=== PATIENT | male | born 1980 | race Caucasian/White ===

== ENCOUNTER 2016-08-19 06:45 | Emergency (ER) | payer OTHER ==
--- NOTE | 2016-08-19 07:40 | ED ORDER SUMMARY ---
..... Patient: JUANY PIZANO OrderSheet Formerly [facility] VisitID: [id number] [place] [address] 35y, M Registration Date/Time: 08/19/2016 ORDER SHEET Weight: 77.1 kg (stated) Allergies: Iodine GENERAL ORDERS: PCT (Procalcitonin) Urgent (07:08/19/2016 Sofía Pierre) (Cancelled: Physician Order7:31 Sofía Pierre) MEDICATION ORDERS: Prednisone PO 40 mg (NOW) (07:31 08/19/2016 Sofía Pierre) (Ack 7:34 RMarsjordan R.N.) (7:39 RMmagdy R.N.) Albuterol Neb Tx 2 unit doses (NOW) (07:39 08/19/2016 Sofía Pierre) (7:41 RMmagdy R.N.) IV FLUIDS: ORDER SHEET NOTES: [Electronically signed by Marcos Thompson Dr. (07:43 08/19/2016)] [Electronically signed by Connie Love R.N. (07:49 08/19/2016)] [Electronically locked/signed by Connie Love R.N. (07:49 08/19/2016)]
--- NOTE | 2016-08-19 07:40 | ED CLINICAL REPORT ---
Clinical Report - Physicians/Mid Levels Merged With [facility] [address] [place] [address] 08/19/2016 6:47 Patient: JUANY PIZANO Time Seen: 06:50; initial patient contact. Arrived- By private vehicle. Historian- patient. HISTORY OF PRESENT ILLNESS Chief Complaint: WHEEZING and HISTORY OF ASTHMA. This started just prior to arrival and is still present. The dyspnea is described as moderate. The patient has had a cough. No sputum production, orthopnea or chest pain or discomfort. Asthma triggers: unknown. Takes asthma medications (inhaled albuterol) (Inhaler is empty). Similar symptoms previously: Many times. Recent medical care: Not recently seen/assessed. REVIEW OF SYSTEMS No nasal discharge, sinus drainage, fever or chills. All systems otherwise negative, except as recorded above. PAST HISTORY Abscess. Abdominal Muscle Strain. Contusion. Abdominal Pain. Abrasion(s). Heart Disease. Nerve Root Compression. Tetanus Status. Chest Wall Pain. URI. Hypertension. Asthma. ADDITIONAL SURGERIES: Fracture Repair. Right arm, compound fracture. Medications: Albuterol, PRN. Allergies: Iodine.(Anaphylaxis). SOCIAL HISTORY Former smoker. No alcohol use or drug use. ADDITIONAL NOTES The nursing notes have been reviewed with agreement regarding the chief complaint, PMH and patient medications and allergies. PHYSICAL EXAM Vital Signs: 08/19/2016 06:48 BP: 151/81. HR: 80. RR: 22. O2 saturation: 98%. Temp: 98 F. Have been reviewed. Hypertensive. Heart rate normal. Tachypneic. Temperature normal. Oxygen saturation normal. Appearance: Alert. No acute distress. Eyes: Eyes normal inspection. ENT: Pharynx normal. Neck: No JVD. CVS: Normal heart rate and rhythm. Heart sounds normal. Respiratory: Mild respiratory distress with accessory muscle use and tachypnea. Skin: No rash. Neuro: Oriented X 3. PROGRESS AND PROCEDURES Course of Care: Albuterol nebulizer treatment #2 (2.5 mg in 3 mL NS) given. The patient's symptoms are now gone. Physical exam findings are improved. Disposition: Discharged home in good and improved condition. CLINICAL IMPRESSION Moderate persistent asthma with an acute exacerbation. No status asthmaticus or pneumonia. INSTRUCTIONS Your Current Medications: CONTINUE TAKING THE FOLLOWING MEDICATIONS: Albuterol* : PRN. Prescription Medications: Albuterol HFA oral inhaler: inhale 2 puffs every 4 hours as needed for wheezing, difficulty breathing or shortness of breath. Dispense one (1) unit. No refill. Prednisone 20 mg: take 2 orally every day for 4 days. Dispense sufficient quantity. No refills. (Start on 08/20/16) Follow-up: Follow up with your doctor Wednesday as scheduled. Screening today revealed the patient's blood pressure to be in the pre-hypertensive range. The patient should follow up with a primary care provider for blood pressure management. (Electronically signed by Marcos Thompson Dr. 08/19/2016 7:43)
--- NOTE | 2016-08-19 07:40 | ED ORDER SUMMARY ---
..... Patient: JUANY PIZANO OrderSheet [facility] VisitID: [id number] [place] [address] 35y, M Registration Date/Time: 08/19/2016 ORDER SHEET Weight: 77.1 kg (stated) Allergies: Iodine GENERAL ORDERS: PCT (Procalcitonin) Urgent (07:08/19/2016 Sofía Pierre) (Cancelled: Physician Order7:31 Sofía Pierre) MEDICATION ORDERS: Prednisone PO 40 mg (NOW) (07:31 08/19/2016 Sofía Pierre) (Ack 7:34 RMarsjordan R.N.) (7:39 RMmagdy R.N.) Albuterol Neb Tx 2 unit doses (NOW) (07:39 08/19/2016 Sofía Pierre) (7:41 RMmagdy R.N.) IV FLUIDS: ORDER SHEET NOTES: [Electronically signed by Marcos Thompson Dr. (07:43 08/19/2016)] [Electronically signed by Connie Love R.N. (07:49 08/19/2016)] [Electronically locked/signed by Connie Love R.N. (07:49 08/19/2016)]
--- NOTE | 2016-08-19 07:40 | ED NURSING NOTES ---
Clinical Report - Nurses [facility] [address] [place] [address] 08/19/2016 6:47 Patient: JUANY PIZANO TRIAGE Triage time 06:48 Aug 19 2016. Acuity: LEVEL 3. Chief Complaint: "ASTHMA ATTACK". ( albuterol treatment in progress). --06:51 Andre Lake R.N. 06:48 08/19/16. BP: 151/81. HR: 80. RR: 22. O2 saturation: 98%. Temp: 98 F. Pain level now 0/10. --06:51 Andre Lake R.N. Weight: 77.1 kg stated. Height/Length: 68 inches Estimated. BMI: 25.9. --06:51 Andre Lake R.N. Medications Albuterol, PRN. --06:49 Andre Lake R.N. Allergies Iodine.(Anaphylaxis) --06:49 Andre Lake R.N. History Arrived by private vehicle. ( Report of acute asthma exaceterbation, labored breathing during triage minimal wheezing heard lungs more diminished). This started just prior to arrival. SOCIAL HX: Former smoker. No alcohol use or drug use. --06:51 Andre Lake R.N. PROBLEMS: Abscess. Abdominal Muscle Strain. Contusion. Abdominal Pain. Abrasion(s). Heart Disease. Nerve Root Compression. Tetanus Status. Chest Wall Pain. Immunizations. URI. Hypertension. Asthma. --06:49 Andre Lake R.N. ADDITIONAL SURGERIES: Fracture Repair. Right arm, compound fracture. --06:49 Andre Lake R.N. Interventions ID band on patient. To treatment room. --06:51 Andre Lake R.N. PHYSICAL ASSESSMENT GENERAL / NEURO / PSYCH: Alert. Oriented X 4. Appears anxious. RESPIRATORY: Mild respiratory distress. The patient can speak a few words at a time. Accessory muscle use. Decreased breath sounds diffusely over both lungs. No wheezes. CVS: Capillary refill less than 2 seconds. --06:53 Andre Lake R.N. NURSING PROGRESS NOTES monitor technician placed on patient. Call light placed in reach of patient. Side rails up x 1. Bed placed in lowest position. Patient placed in chair. --06:56 Andre Lake R.N. ( Report given to uri Rosales). --07:09 Andre Lake R.N. 07:08 08/19/16. HR: 78. O2 saturation: 95%. --07:09 Andre Lake R.N. 07:15 08/19/16. Care transferred and report received (report received from RN. Andre). --07:15 Connie Love R.N. 07:21 08/19/16. BP: 122/85. HR: 87. RR: 16. O2 saturation: 97%. Temp: deferred. Pain level now: 0/10. --07:22 Connie Love R.N. 07:16 08/19/2016 Albuterol Neb TX Nebulizer 2 unit dose given. Given by the respiratory therapist. Allergies verified and confirmed 5 rights. --07:41 Connie Love R.N. 07:22 08/19/16. Patient informed about reason for wait and about plan of care. --07:22 Connie Love R.N. 07:39 08/19/2016 Prednisone PO Tablets 40 mg given. Allergies verified and confirmed 5 rights. --07:39 Connie Love R.N. DISPOSITION / DISCHARGE 07:47 08/19/16. Departure time: 07:47. No learning barriers present. Discharge instructions provided and reviewed with the patient. Reviewed warnings. Reviewed medication(s). Treatments reviewed. Patient verbalized understanding. Written instructions provided in [place]i. The patient was discharged by the physician. He was discharged home. He left the Emergency Department ambulatory and via private vehicle. Patient driving. --07:47 Connie Love R.N. 07:21 08/19/16. BP: 122/85. HR: 87. RR: 16. O2 saturation: 97%. Temp: deferred. Pain level now: 0/10. --07:47 Connie Love R.N. Locked/Released at 08/19/2016 7:49 by Connie Love R.N.
--- NOTE | 2016-08-19 07:40 | ED NURSING NOTES ---
Clinical Report - Nurses [facility] [address] [place] [address] 08/19/2016 6:47 Patient: JUANY PIZANO TRIAGE Triage time 06:48 Aug 19 2016. Acuity: LEVEL 3. Chief Complaint: "ASTHMA ATTACK". ( albuterol treatment in progress). --06:51 Andre Lake R.N. 06:48 08/19/16. BP: 151/81. HR: 80. RR: 22. O2 saturation: 98%. Temp: 98 F. Pain level now 0/10. --06:51 Andre Lake R.N. Weight: 77.1 kg stated. Height/Length: 68 inches Estimated. BMI: 25.9. --06:51 Andre Lake R.N. Medications Albuterol, PRN. --06:49 Andre Lake R.N. Allergies Iodine.(Anaphylaxis) --06:49 Andre Lake R.N. History Arrived by private vehicle. ( Report of acute asthma exaceterbation, labored breathing during triage minimal wheezing heard lungs more diminished). This started just prior to arrival. SOCIAL HX: Former smoker. No alcohol use or drug use. --06:51 Andre Lake R.N. PROBLEMS: Abscess. Abdominal Muscle Strain. Contusion. Abdominal Pain. Abrasion(s). Heart Disease. Nerve Root Compression. Tetanus Status. Chest Wall Pain. Immunizations. URI. Hypertension. Asthma. --06:49 Andre Lake R.N. ADDITIONAL SURGERIES: Fracture Repair. Right arm, compound fracture. --06:49 Andre Lake R.N. Interventions ID band on patient. To treatment room. --06:51 Andre Lake R.N. PHYSICAL ASSESSMENT GENERAL / NEURO / PSYCH: Alert. Oriented X 4. Appears anxious. RESPIRATORY: Mild respiratory distress. The patient can speak a few words at a time. Accessory muscle use. Decreased breath sounds diffusely over both lungs. No wheezes. CVS: Capillary refill less than 2 seconds. --06:53 Andre Lake R.N. NURSING PROGRESS NOTES lunchroom monitor placed on patient. Call light placed in reach of patient. Side rails up x 1. Bed placed in lowest position. Patient placed in chair. --06:56 Andre Lake R.N. ( Report given to uri Rosales). --07:09 Andre Lake R.N. 07:08 08/19/16. HR: 78. O2 saturation: 95%. --07:09 Andre Lake R.N. 07:15 08/19/16. Care transferred and report received (report received from RN. Andre). --07:15 Connie Love R.N. 07:21 08/19/16. BP: 122/85. HR: 87. RR: 16. O2 saturation: 97%. Temp: deferred. Pain level now: 0/10. --07:22 Connie Love R.N. 07:16 08/19/2016 Albuterol Neb TX Nebulizer 2 unit dose given. Given by the respiratory therapist. Allergies verified and confirmed 5 rights. --07:41 Connie Love R.N. 07:22 08/19/16. Patient informed about reason for wait and about plan of care. --07:22 Connie Love R.N. 07:39 08/19/2016 Prednisone PO Tablets 40 mg given. Allergies verified and confirmed 5 rights. --07:39 Connie Love R.N. DISPOSITION / DISCHARGE 07:47 08/19/16. Departure time: 07:47. No learning barriers present. Discharge instructions provided and reviewed with the patient. Reviewed warnings. Reviewed medication(s). Treatments reviewed. Patient verbalized understanding. Written instructions provided in Brazilian. The patient was discharged by the physician. He was discharged home. He left the Emergency Department ambulatory and via private vehicle. Patient driving. --07:47 Connie Love R.N. 07:21 08/19/16. BP: 122/85. HR: 87. RR: 16. O2 saturation: 97%. Temp: deferred. Pain level now: 0/10. --07:47 Connie Love R.N. Locked/Released at 08/19/2016 7:49 by Connie Love R.N.
--- NOTE | 2016-08-19 07:40 | ED CLINICAL REPORT ---
Clinical Report - Physicians/Mid Levels [facility] [address] [place] [address] 08/19/2016 6:47 Patient: JUANY PIZANO Time Seen: 06:50; initial patient contact. Arrived- By private vehicle. Historian- patient. HISTORY OF PRESENT ILLNESS Chief Complaint: WHEEZING and HISTORY OF ASTHMA. This started just prior to arrival and is still present. The dyspnea is described as moderate. The patient has had a cough. No sputum production, orthopnea or chest pain or discomfort. Asthma triggers: unknown. Takes asthma medications (inhaled albuterol) (Inhaler is empty). Similar symptoms previously: Many times. Recent medical care: Not recently seen/assessed. REVIEW OF SYSTEMS No nasal discharge, sinus drainage, fever or chills. All systems otherwise negative, except as recorded above. PAST HISTORY Abscess. Abdominal Muscle Strain. Contusion. Abdominal Pain. Abrasion(s). Heart Disease. Nerve Root Compression. Tetanus Status. Chest Wall Pain. URI. Hypertension. Asthma. ADDITIONAL SURGERIES: Fracture Repair. Right arm, compound fracture. Medications: Albuterol, PRN. Allergies: Iodine.(Anaphylaxis). SOCIAL HISTORY Former smoker. No alcohol use or drug use. ADDITIONAL NOTES The nursing notes have been reviewed with agreement regarding the chief complaint, PMH and patient medications and allergies. PHYSICAL EXAM Vital Signs: 08/19/2016 06:48 BP: 151/81. HR: 80. RR: 22. O2 saturation: 98%. Temp: 98 F. Have been reviewed. Hypertensive. Heart rate normal. Tachypneic. Temperature normal. Oxygen saturation normal. Appearance: Alert. No acute distress. Eyes: Eyes normal inspection. ENT: Pharynx normal. Neck: No JVD. CVS: Normal heart rate and rhythm. Heart sounds normal. Respiratory: Mild respiratory distress with accessory muscle use and tachypnea. Skin: No rash. Neuro: Oriented X 3. PROGRESS AND PROCEDURES Course of Care: Albuterol nebulizer treatment #2 (2.5 mg in 3 mL NS) given. The patient's symptoms are now gone. Physical exam findings are improved. Disposition: Discharged home in good and improved condition. CLINICAL IMPRESSION Moderate persistent asthma with an acute exacerbation. No status asthmaticus or pneumonia. INSTRUCTIONS Your Current Medications: CONTINUE TAKING THE FOLLOWING MEDICATIONS: Albuterol* : PRN. Prescription Medications: Albuterol HFA oral inhaler: inhale 2 puffs every 4 hours as needed for wheezing, difficulty breathing or shortness of breath. Dispense one (1) unit. No refill. Prednisone 20 mg: take 2 orally every day for 4 days. Dispense sufficient quantity. No refills. (Start on 08/20/16) Follow-up: Follow up with your doctor Wednesday as scheduled. Screening today revealed the patient's blood pressure to be in the pre-hypertensive range. The patient should follow up with a primary care provider for blood pressure management. (Electronically signed by Marcos Thompson Dr. 08/19/2016 7:43)
--- NOTE | 2016-08-19 07:49 | ED MAR SUMMARY ---
..... Medication Administration Record [facility] [address] [place] [address] Patient: JUANY PIZANO Visit ID: [id number] 35y, M Weight: 77.1 kg Height/Length: 68 in BMI: 25.9 ALLERGIES: Iodine Given 07:16 08/19/2016 Connie Love RKeke Medication Administered: ALBUTEROL [NEB TX], Dose: 2 unit dose Nebulizer Neb TX. Medication Ordered: Albuterol Neb Tx 2 unit doses (NOW). Given 07:39 08/19/2016 Connie Love RVijayN. Medication Administered: PREDNISONE [PO], Dose: 40 mg Tablets PO. Medication Ordered: Prednisone PO 40 mg (NOW).
--- NOTE | 2016-08-19 07:49 | ED MAR SUMMARY ---
..... Medication Administration Record [facility] [address] [place] [address] Patient: JUANY PIZANO Visit ID: [id number] 35y, M Weight: 77.1 kg Height/Length: 68 in BMI: 25.9 ALLERGIES: Iodine Given 07:16 08/19/2016 Connie Love RKeke Medication Administered: ALBUTEROL [NEB TX], Dose: 2 unit dose Nebulizer Neb TX. Medication Ordered: Albuterol Neb Tx 2 unit doses (NOW). Given 07:39 08/19/2016 Connie Love RVijayN. Medication Administered: PREDNISONE [PO], Dose: 40 mg Tablets PO. Medication Ordered: Prednisone PO 40 mg (NOW).
--- NOTE | 2016-08-19 07:49 | ED DISCHARGE INSTRUCTIONS ---
Patient: JUANY PIZANO General Instructions [facility] VisitID: [id number] [place] [address] 35y, M Registration Date/Time: 08/19/2016 Moderate persistent asthma with an acute exacerbation. No status asthmaticus or pneumonia. INSTRUCTIONS Your Current Medications: CONTINUE TAKING THE FOLLOWING MEDICATIONS: Albuterol* : PRN. Prescription Medications: Albuterol HFA oral inhaler: inhale 2 puffs every 4 hours as needed for wheezing, difficulty breathing or shortness of breath. Dispense one (1) unit. No refill. Prednisone 20 mg: take 2 orally every day for 4 days. Dispense sufficient quantity. No refills. (Start on 08/20/16) Follow-up: Follow up with your doctor Wednesday as scheduled. Screening today revealed the patient's blood pressure to be in the pre-hypertensive range. The patient should follow up with a primary care provider for blood pressure management. ADDITIONAL INFORMATION Albuterol Sulfate Pressurized inhalation, suspension What is this medicine? ALBUTEROL (al BYOO ter ole) is a bronchodilator. It helps open up the airways in your lungs to make it easier to breathe. This medicine is used to treat and to prevent bronchospasm. How should I use this medicine? This medicine is for inhalation through the mouth. Follow the directions on your prescription label. Take your medicine at regular intervals. Do not use more often than directed. Make sure that you are using your inhaler correctly. Ask you doctor or health care provider if you have any questions. Talk to your orthopedic cast specialist regarding the use of this medicine in children. Special care may be needed. What side effects may I notice from receiving this medicine? Side effects that you should report to your doctor or health child care lead teacher as soon as possible: allergic reactions like skin rash, itching or hives, swelling of the face, lips, or tongue breathing problems chest pain feeling faint or lightheaded, falls high blood pressure irregular heartbeat fever muscle cramps or weakness pain, tingling, numbness in the hands or feet vomiting Side effects that usually do not require medical attention (report to your doctor or health child care lead teacher if they continue or are bothersome): cough difficulty sleeping headache nervousness or trembling stomach upset stuffy or runny nose throat irritation unusual taste What may interact with this medicine? anti-infectives like chloroquine and pentamidine caffeine cisapride diuretics medicines for colds medicines for depression or for emotional or psychotic conditions medicines for weight loss including some herbal products methadone some antibiotics like clarithromycin, erythromycin, levofloxacin, and linezolid some heart medicines steroid hormones like dexamethasone, cortisone, hydrocortisone theophylline thyroid hormones What if I miss a dose? If you miss a dose, use it as soon as you can. If it is almost time for your next dose, use only that dose. Do not use double or extra doses. Where should I keep my medicine? Keep out of the reach of children. Store at room temperature between 15 and 30 degrees C (59 and 86 degrees F). The contents are under pressure and may burst when exposed to heat or flame. Do not freeze. This medicine does not work as well if it is too cold. Throw away any unused medicine after the expiration date. Inhalers need to be thrown away after the labeled number of puffs have been used or by the expiration date; whichever comes first. Ventolin HFA should be thrown away 12 months after removing from foil pouch. Check the instructions that come with your medicine. What should I tell my health care provider before I take this medicine? They need to know if you have any of the following conditions: diabetes heart disease or irregular heartbeat high blood pressure pheochromocytoma seizures thyroid disease an unusual or allergic reaction to albuterol, levalbuterol, sulfites, other medicines, foods, dyes, or preservatives or trying to get breast-feeding What should I watch for while using this medicine? Tell your doctor or health child care lead teacher if your symptoms do not improve. Do not use extra albuterol. If your asthma or bronchitis gets worse while you are using this medicine, call your doctor right away. If your mouth gets dry try chewing sugarless gum or sucking hard candy. Drink water as directed. Prednisone Oral tablet What is this medicine? PREDNISONE (PRED ni sone) is a corticosteroid. It is commonly used to treat inflammation of the skin, joints, lungs, and other organs. Common conditions treated include asthma, allergies, and arthritis. It is also used for other conditions, such as blood disorders and diseases of the adrenal glands. How should I use this medicine? Take this medicine by mouth with a glass of water. Follow the directions on the prescription label. Take this medicine with food. If you are taking this medicine once a day, take it in the morning. Do not take more medicine than you are told to take. Do not suddenly stop taking your medicine because you may develop a severe reaction. Your doctor will tell you how much medicine to take. If your doctor wants you to stop the medicine, the dose may be slowly lowered over time to avoid any side effects. Talk to your orthopedic cast specialist regarding the use of this medicine in children. Special care may be needed. What side effects may I notice from receiving this medicine? Side effects that you should report to your doctor or health child care lead teacher as soon as possible: allergic reactions like skin rash, itching or hives, swelling of the face, lips, or tongue changes in emotions or moods changes in vision depressed mood eye pain fever or chills, cough, sore throat, pain or difficulty passing urine increased thirst swelling of ankles, feet Side effects that usually do not require medical attention (report to your doctor or health child care lead teacher if they continue or are bothersome): confusion, excitement, restlessness headache nausea, vomiting skin problems, acne, thin and shiny skin trouble sleeping weight gain What may interact with this medicine? Do not take this medicine with any of the following medications: metyrapone mifepristone This medicine may also interact with the following medications: aminoglutethimide amphotericin B aspirin and aspirin-like medicines barbiturates certain medicines for diabetes, like glipizide or glyburide cholestyramine cholinesterase inhibitors cyclosporine digoxin diuretics ephedrine female hormones, like estrogens and control pills isoniazid ketoconazole NSAIDS, medicines for pain and inflammation, like ibuprofen or naproxen phenytoin rifampin toxoids vaccines warfarin What if I miss a dose? If you miss a dose, take it as soon as you can. If it is almost time for your next dose, talk to your doctor or health child care lead teacher. You may need to miss a dose or take an extra dose. Do not take double or extra doses without advice. Where should I keep my medicine? Keep out of the reach of children. Store at room temperature between 15 and 30 degrees C (59 and 86 degrees F). Protect from light. Keep container tightly closed. Throw away any unused medicine after the expiration date. What should I tell my health care provider before I take this medicine? They need to know if you have any of these conditions: Endeavor's syndrome diabetes glaucoma heart disease high blood pressure infection (especially a virus infection such as chickenpox, cold sores, or herpes) kidney disease liver disease mental illness myasthenia gravis osteoporosis seizures stomach or intestine problems thyroid disease an unusual or allergic reaction to lactose, prednisone, other medicines, foods, dyes, or preservatives or trying to get breast-feeding What should I watch for while using this medicine? Visit your doctor or health child care lead teacher for regular checks on your progress. If you are taking this medicine over a prolonged period, carry an identification card with your name and address, the type and dose of your medicine, and your doctor's name and address. This medicine may increase your risk of getting an infection. Tell your doctor or health child care lead teacher if you are around anyone with measles or chickenpox, or if you develop sores or blisters that do not heal properly. If you are going to have surgery, tell your doctor or health child care lead teacher that you have taken this medicine within the last twelve months. Ask your doctor or health child care lead teacher about your diet. You may need to lower the amount of salt you eat. This medicine may affect blood sugar levels. If you have diabetes, check with your doctor or health child care lead teacher before you change your diet or the dose of your diabetic medicine. You have been given the following additional information: Albuterol Sulfate Pressurized inhalation, suspension Prednisone Oral tablet (Electronically signed by Marcos Thompson Dr. 08/19/2016 7:43)
--- NOTE | 2016-08-19 07:49 | ED MED RECONCILIATION SUMMARY ---
Patient: JUANY PIZANO Medication Reconciliation Report Located Within [facility] VisitID: [id number] [address] [place] [address] 35y, M Registration Date/Time: 08/19/2016 Weight: 77.1 kg Height/Length: 68 in. BMI: 25.9 ALLERGIES: Iodine The patient's Home Medications are listed below: CONTINUE TAKING THE FOLLOWING MEDICATIONS: Albuterol, PRN The source(s) of the original Home Medication information: Not obtained. The following Medications were given to the patient in the Emergency Department: Prednisone [PO] PO 40 mg, administered: 08/19/2016 7:39:00 AM Albuterol [Neb Tx] Neb TX 2 unit dose, administered: 08/19/2016 7:16:00 AM The following Medications were prescribed to the patient: Albuterol HFA oral inhaler: inhale 2 puffs every 4 hours as needed for wheezing, difficulty breathing or shortness of breath. Dispense one (1) unit. No refill. -- Marcos Thompson Dr. Prednisone 20 mg: take 2 orally every day for 4 days. Dispense sufficient quantity. No refills.(Start on 08/20/16) -- Marcos Thompson Dr.
--- NOTE | 2016-08-19 07:49 | ED DISCHARGE INSTRUCTIONS ---
Patient: JUANY PIZANO General Instructions [facility] VisitID: [id number] [place] [address] 35y, M Registration Date/Time: 08/19/2016 Moderate persistent asthma with an acute exacerbation. No status asthmaticus or pneumonia. INSTRUCTIONS Your Current Medications: CONTINUE TAKING THE FOLLOWING MEDICATIONS: Albuterol* : PRN. Prescription Medications: Albuterol HFA oral inhaler: inhale 2 puffs every 4 hours as needed for wheezing, difficulty breathing or shortness of breath. Dispense one (1) unit. No refill. Prednisone 20 mg: take 2 orally every day for 4 days. Dispense sufficient quantity. No refills. (Start on 08/20/16) Follow-up: Follow up with your doctor Wednesday as scheduled. Screening today revealed the patient's blood pressure to be in the pre-hypertensive range. The patient should follow up with a primary care provider for blood pressure management. ADDITIONAL INFORMATION Albuterol Sulfate Pressurized inhalation, suspension What is this medicine? ALBUTEROL (al BYOO ter ole) is a bronchodilator. It helps open up the airways in your lungs to make it easier to breathe. This medicine is used to treat and to prevent bronchospasm. How should I use this medicine? This medicine is for inhalation through the mouth. Follow the directions on your prescription label. Take your medicine at regular intervals. Do not use more often than directed. Make sure that you are using your inhaler correctly. Ask you doctor or health care provider if you have any questions. Talk to your naval aircrewman tactical helicopter regarding the use of this medicine in children. Special care may be needed. What side effects may I notice from receiving this medicine? Side effects that you should report to your doctor or health animal care specialist as soon as possible: allergic reactions like skin rash, itching or hives, swelling of the face, lips, or tongue breathing problems chest pain feeling faint or lightheaded, falls high blood pressure irregular heartbeat fever muscle cramps or weakness pain, tingling, numbness in the hands or feet vomiting Side effects that usually do not require medical attention (report to your doctor or health animal care specialist if they continue or are bothersome): cough difficulty sleeping headache nervousness or trembling stomach upset stuffy or runny nose throat irritation unusual taste What may interact with this medicine? anti-infectives like chloroquine and pentamidine caffeine cisapride diuretics medicines for colds medicines for depression or for emotional or psychotic conditions medicines for weight loss including some herbal products methadone some antibiotics like clarithromycin, erythromycin, levofloxacin, and linezolid some heart medicines steroid hormones like dexamethasone, cortisone, hydrocortisone theophylline thyroid hormones What if I miss a dose? If you miss a dose, use it as soon as you can. If it is almost time for your next dose, use only that dose. Do not use double or extra doses. Where should I keep my medicine? Keep out of the reach of children. Store at room temperature between 15 and 30 degrees C (59 and 86 degrees F). The contents are under pressure and may burst when exposed to heat or flame. Do not freeze. This medicine does not work as well if it is too cold. Throw away any unused medicine after the expiration date. Inhalers need to be thrown away after the labeled number of puffs have been used or by the expiration date; whichever comes first. Ventolin HFA should be thrown away 12 months after removing from foil pouch. Check the instructions that come with your medicine. What should I tell my health care provider before I take this medicine? They need to know if you have any of the following conditions: diabetes heart disease or irregular heartbeat high blood pressure pheochromocytoma seizures thyroid disease an unusual or allergic reaction to albuterol, levalbuterol, sulfites, other medicines, foods, dyes, or preservatives or trying to get breast-feeding What should I watch for while using this medicine? Tell your doctor or health animal care specialist if your symptoms do not improve. Do not use extra albuterol. If your asthma or bronchitis gets worse while you are using this medicine, call your doctor right away. If your mouth gets dry try chewing sugarless gum or sucking hard candy. Drink water as directed. Prednisone Oral tablet What is this medicine? PREDNISONE (PRED ni sone) is a corticosteroid. It is commonly used to treat inflammation of the skin, joints, lungs, and other organs. Common conditions treated include asthma, allergies, and arthritis. It is also used for other conditions, such as blood disorders and diseases of the adrenal glands. How should I use this medicine? Take this medicine by mouth with a glass of water. Follow the directions on the prescription label. Take this medicine with food. If you are taking this medicine once a day, take it in the morning. Do not take more medicine than you are told to take. Do not suddenly stop taking your medicine because you may develop a severe reaction. Your doctor will tell you how much medicine to take. If your doctor wants you to stop the medicine, the dose may be slowly lowered over time to avoid any side effects. Talk to your naval aircrewman tactical helicopter regarding the use of this medicine in children. Special care may be needed. What side effects may I notice from receiving this medicine? Side effects that you should report to your doctor or health animal care specialist as soon as possible: allergic reactions like skin rash, itching or hives, swelling of the face, lips, or tongue changes in emotions or moods changes in vision depressed mood eye pain fever or chills, cough, sore throat, pain or difficulty passing urine increased thirst swelling of ankles, feet Side effects that usually do not require medical attention (report to your doctor or health animal care specialist if they continue or are bothersome): confusion, excitement, restlessness headache nausea, vomiting skin problems, acne, thin and shiny skin trouble sleeping weight gain What may interact with this medicine? Do not take this medicine with any of the following medications: metyrapone mifepristone This medicine may also interact with the following medications: aminoglutethimide amphotericin B aspirin and aspirin-like medicines barbiturates certain medicines for diabetes, like glipizide or glyburide cholestyramine cholinesterase inhibitors cyclosporine digoxin diuretics ephedrine female hormones, like estrogens and control pills isoniazid ketoconazole NSAIDS, medicines for pain and inflammation, like ibuprofen or naproxen phenytoin rifampin toxoids vaccines warfarin What if I miss a dose? If you miss a dose, take it as soon as you can. If it is almost time for your next dose, talk to your doctor or health animal care specialist. You may need to miss a dose or take an extra dose. Do not take double or extra doses without advice. Where should I keep my medicine? Keep out of the reach of children. Store at room temperature between 15 and 30 degrees C (59 and 86 degrees F). Protect from light. Keep container tightly closed. Throw away any unused medicine after the expiration date. What should I tell my health care provider before I take this medicine? They need to know if you have any of these conditions: Maitland's syndrome diabetes glaucoma heart disease high blood pressure infection (especially a virus infection such as chickenpox, cold sores, or herpes) kidney disease liver disease mental illness myasthenia gravis osteoporosis seizures stomach or intestine problems thyroid disease an unusual or allergic reaction to lactose, prednisone, other medicines, foods, dyes, or preservatives or trying to get breast-feeding What should I watch for while using this medicine? Visit your doctor or health animal care specialist for regular checks on your progress. If you are taking this medicine over a prolonged period, carry an identification card with your name and address, the type and dose of your medicine, and your doctor's name and address. This medicine may increase your risk of getting an infection. Tell your doctor or health animal care specialist if you are around anyone with measles or chickenpox, or if you develop sores or blisters that do not heal properly. If you are going to have surgery, tell your doctor or health animal care specialist that you have taken this medicine within the last twelve months. Ask your doctor or health animal care specialist about your diet. You may need to lower the amount of salt you eat. This medicine may affect blood sugar levels. If you have diabetes, check with your doctor or health animal care specialist before you change your diet or the dose of your diabetic medicine. You have been given the following additional information: Albuterol Sulfate Pressurized inhalation, suspension Prednisone Oral tablet (Electronically signed by Marcos Thompson Dr. 08/19/2016 7:43)
--- NOTE | 2016-08-19 07:49 | ED MED RECONCILIATION SUMMARY ---
Patient: JUANY PIZANO Medication Reconciliation Report [facility] VisitID: [id number] [address] [place] [address] 35y, M Registration Date/Time: 08/19/2016 Weight: 77.1 kg Height/Length: 68 in. BMI: 25.9 ALLERGIES: Iodine The patient's Home Medications are listed below: CONTINUE TAKING THE FOLLOWING MEDICATIONS: Albuterol, PRN The source(s) of the original Home Medication information: Not obtained. The following Medications were given to the patient in the Emergency Department: Prednisone [PO] PO 40 mg, administered: 08/19/2016 7:39:00 AM Albuterol [Neb Tx] Neb [place] 2 unit dose, administered: 08/19/2016 7:16:00 AM The following Medications were prescribed to the patient: Albuterol HFA oral inhaler: inhale 2 puffs every 4 hours as needed for wheezing, difficulty breathing or shortness of breath. Dispense one (1) unit. No refill. -- Marcos Thompson Dr. Prednisone 20 mg: take 2 orally every day for 4 days. Dispense sufficient quantity. No refills.(Start on 08/20/16) -- Marcos Thompson Dr.
== END 2016-08-19 07:47 | disposition home or self-care (01) ==
LOC: ED SRH 06:45
DX: J45.41 Moderate persistent asthma with (acute) exacerbation (principal); I10 Essential (primary) hypertension; Z79.51 Long term (current) use of inhaled steroids; Z91.041 Radiographic dye allergy status; Z87.891 Personal history of nicotine dependence